=== PATIENT | female | born 1945 | race Caucasian/White ===

== ENCOUNTER 2016-07-04 21:21 | Emergency (ER) | payer MEDICARE, OTHER ==
[~2016-07-04] VITALS: Ht 167.6 cm; Wt 77.5 kg
[2016-07-04 21:25] VITALS: BP 202/112; PULSE 77; RESP 18; TEMP 98.5; O2SAT 100
--- NOTE | 2016-07-04 21:41 | PD ---
HPI Chief Complaint: Hypertension Time Seen by Provider: 21:39 Travel History International Travel<30 days: No Contact w/Intl Traveler<30days: No Traveled to known affect area: No History of Present Illness HPI The patient is a 70 year old female who presents to the [facility] emergency department with a history of reportedly feeling anxious and noticing that her blood pressure and pulse went up prior to arrival. The patient reports that her blood pressure has been difficult to control since last year. She reports that she's been under increased stress since last year when her had a stroke. The patient additionally reports that she's had a significant amount of pain recently which also seems to be affecting her blood pressure. The patient reports that 10 days ago she underwent arthroscopy and medial meniscus repair by Dr. Bowman. She reports that she's been taking hydrocodone 10 mg with minimal relief. The patient reports that she normally drinks alcohol to help with her anxiety. She reports that recently she's been nauseated and has not been drinking as much as previously. She normally drinks 2 vodka beverages every other day. She denies having any history of alcohol related withdrawal symptoms. 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 The patient's blood pressure prior to arrival was 230/120. The patient's pulse was at its maximum 108. The patient was brought in by ambulance services. The patient's blood pressure began to slightly improved prior to arrival. The patient was initially anxious, however after discussing some of her history, she began to become more calm which did improve her blood pressure. The patient does report having a headache over her for head. She denies having any neck pain. She denies having any chest pain, chest pressure, or shortness of breath. She denies having any numbness or tingling to her extremities. She denies having any weakness. The patient reports that yesterday after eating popcorn with butter she did have diarrhea 2. She denies having any other diarrhea. She denies having any vomiting. She has been regularly taking her Coreg and losartan. Her primary care physician is Dr. Shireen Rendon. I review of systems, the patient denies any recent fevers, cough, congestion, abdominal pain, urinary symptoms, or other neurologic symptoms. [facility] Past Medical History Narrative Medical The patient's past medical history is significant for hypertension, meniscus tear of the right knee status post arthroscopic repair 10 days ago, history of anxiety disorder, acid reflux. Anxiety: Yes GERD: Yes Hypertension: Yes Tetanus Vaccination: < 5 Years Influenza Vaccination: Yes Dilation and Curettage (D&C): Yes Past Surgical History Narrative Surgical The patient's past surgical history is significant for a dilation and curettage , multiple ear surgeries, arthroscopy of the right knee 10 days ago, tonsillectomy, spleen surgery Abdominal Surgery: Yes (SPLEEN REPAIR) Ear Surgery: Yes (TB IN EAR, MULTIPLE EAR Sx) Tonsillectomy: Yes Social History Alcohol Use: Yes (reportedly 2 vodka drinks every other day) Tobacco Use: No Substance Use: No Allergies-Medications (Allergen,Severity, Reaction): Coded Allergies: Penicillin (Verified Allergy, Unknown, RASH, 07/04/16) Reported Meds & Prescriptions Reported Meds & Active Scripts Active Xanax (Alprazolam) 0.25 Mg Tab 0.25 Mg PO Q8H PRN Reported Prilosec (Omeprazole Magnesium) 20 Mg Tab 20 Mg PO BID Losartan (Losartan Potassium) 100 Mg Tab 100 Mg PO DAILY Coreg (Carvedilol) 25 Mg Tab 25 Mg PO BID Synthroid (Levothyroxine Sodium) 50 Mcg Tab 50 Mcg PO DAILY Effexor XR 24 HR (Venlafaxine HCl) 150 Mg Cap 150 Mg PO DAILY Review of Systems Except as stated in HPI: all other systems reviewed are Neg General / Constitutional: No: Fever Eyes: No: Visual changes HENT: No: Headaches Cardiovascular: No: Chest Pain or Discomfort Respiratory: No: Shortness of Breath Gastrointestinal: Positive: Nausea, Diarrhea (yesterday 2), Changes in Bowel Habits, No: Vomiting, Abdominal Pain, Hematemesis, Hematochezia, Constipation, Indigestion, Loss of Appetite Genitourinary: No: Dysuria Musculoskeletal: Positive: Myalgias, Arthralgias, Edema, Pain Skin: No Rash Neurologic: Positive: Headache, No: Weakness, Focal Abnormalities, Change in Mentation, Slurred Speech, Sensory Disturbance Psychiatric: Positive: Anxiety, Mood Disorder, No: Depression Endocrine: No: Polydipsia Hematologic/Lymphatic: No: Easy Bruising Physical Exam Narrative General: The patient is a well-developed well-nourished female in no acute distress. Head and Neck exam: Head is normocephalic atraumatic. Eyes: EOMI, pupils are equal round and reactive to light. Nose: Midline septum with pink mucous membranes Mouth: Dentition unremarkable. Moist mucus membranes. Posterior oropharynx is not erythematous. No tonsillar hypertrophy. Uvula midline. Airway patent. Neck: No palpable lymphadenopathy. No nuchal rigidity. No thyromegaly. Cardiovascular: Regular rate and rhythm without murmurs, gallops, or rubs. No pulse deficit to the extremities. Lungs: Clear to auscultation bilaterally. No wheezes, rhonchi, or rales. Abdomen: Soft, without tenderness to palpation in all 4 quadrants of the abdomen. No guarding, rebound, or rigidity. Normal bowel sounds are audible. No tenderness on palpation of McBurney's point. Negative Norman sign. Extremities: No clubbing, cyanosis, or edema. 2+ pulses in all 4 extremities. On examination of the area of interest, the right leg the patient is noted to have bruising extending up the thigh nearly to the groin on the right side, older appearing ecchymosis is noted. The patient has 2 Band-[address] one on the medial aspect of the knee, the other on the lateral aspect of the knee. The Band-Aids were removed. The patient refused to have Steri-Strips removed. She was told these should not be removed by her orthopedic physician. There is no drainage noted. No significant erythema or edema noted. No crepitus. No ballotable patella. The patient reports having some tenderness on palpation along the medial anterior thigh with mild edema reported. No calf tenderness on palpation bilaterally. Negative Homans sign. Back: No costovertebral angle tenderness to palpation. Neurologic Exam: Grossly nonfocal. Skin Exam: No rash noted. Intact skin that is warm and dry. Data Data Last Documented VS Vital Signs Date Time Temp Pulse Resp B/P Pulse Ox O2 Delivery O2 Flow Rate FiO2 07/04/16 22:30 68 16 152/83 98 Room Air 07/04/16 21:25 98.5 Orders Us Leg Venous Doppler (07/04/16 21:38) Electrocardiogram (07/04/16 21:39) Complete Blood Count With Diff (07/04/16 21:39) Basic Metabolic Panel (Bmp) (07/04/16 21:39) C-Reactive Protein (Crp) (07/04/16 21:39) Ct Brain W/O Iv Contrast(Rout) (07/04/16 21:39) Iv Access Insert/Monitor (07/04/16 21:39) Ecg Monitoring (07/04/16 21:39) Oximetry (07/04/16 21:39) Alprazolam (Xanax) (07/04/16 21:45) Labs Laboratory Tests Test 07/04/16 21:45 White Blood Count 8.8 TH/MM3 Red Blood Count 3.79 MIL/MM3 Hemoglobin 11.7 GM/DL Hematocrit 34.4 % Mean Corpuscular Volume 90.8 FL Mean Corpuscular Hemoglobin 30.9 PG Mean Corpuscular Hemoglobin 34.1 % Concent Red Cell Distribution Width 14.5 % Platelet Count 247 TH/MM3 Mean Platelet Volume 9.1 FL Neutrophils (%) (Auto) 64.7 % Lymphocytes (%) (Auto) 22.2 % Monocytes (%) (Auto) 11.2 % Eosinophils (%) (Auto) 1.0 % Basophils (%) (Auto) 0.9 % Neutrophils # (Auto) 5.7 TH/MM3 Lymphocytes # (Auto) 1.9 TH/MM3 Monocytes # (Auto) 1.0 TH/MM3 Eosinophils # (Auto) 0.1 TH/MM3 Basophils # (Auto) 0.1 TH/MM3 CBC Comment DIFF FINAL Differential Comment Sodium Level 140 MEQ/L Potassium Level 3.5 MEQ/L Chloride Level 105 MEQ/L Carbon Dioxide Level 26.3 MEQ/L Anion Gap 9 MEQ/L Blood Urea Nitrogen 15 MG/DL Creatinine 0.76 MG/DL Estimat Glomerular Filtration 76 ML/MIN Rate Random Glucose 116 MG/DL Calcium Level 9.5 MG/DL C-Reactive Protein LESS THAN 0.29 MG/DL MDM Medical Decision Making Medical Screen Exam Complete: Yes Emergency Medical Condition: Yes Medical Record Reviewed: Yes Interpretation(s) Last Impressions Head CT 07/04/162138 Signed Impressions: Service Date/Time: Monday, July 04, 2016 21:54 - CONCLUSION: No acute disease. Jose Bullock MD Lower Extremity Ultrasound 07/04/162137 Signed Impressions: Service Date/Time: Monday, July 04, 2016 21:59 - CONCLUSION: No evidence of deep venous thrombosis within the right lower extremity. Jose Bullock MD Differential Diagnosis Poorly controlled hypertension related to anxiety, versus pain. Right lower extremity ecchymosis and swelling status post arthroscopy: Differential diagnosis for this includes DVT, versus normal postoperative pain, versus infection Narrative Course During the course of the patients emergency department visit, the patients history, examination, and differential diagnosis were reviewed with the patient. The patient had IV access obtained and blood work sent for analysis. The patient was placed on a camp program director with oximetry and blood pressure monitoring. An EKG was done on arrival. The patient's EKG shows a sinus rhythm heart rate of 75, no acute ST segment elevation or depression, T waves are inverted in V1. The patient reported feeling anxious and is asking for anxiety medication. She denies being on any anxiety medications at home. The patient's initial blood pressure is noted to be 202/112. We will continue to monitor this. A CT scan of the brain was ordered. Ultrasound of the right lower extremity was ordered to rule out DVT. The patient was initially provided Xanax 0.5 mg by mouth 1. The patient's blood pressure on repeated evaluation began to slowly improve down to a systolic in the 150s. The patients laboratory studies were reviewed and remarkable for a white count 8.8, hemoglobin 11.7, platelets 247 with 11.2 monocytes, BMP is remarkable for glucose of 116, C-reactive protein less than 0.29 decrease the likelihood of infection postoperatively. Radiology studies were reviewed and remarkable for a CT scan of the brain shows no acute abnormality. An ultrasound of the right lower extremity reveals no evidence of DVT. The patient will be discharged home with a prescription for Xanax. The patient was instructed regarding the importance of close follow-up with her primary care physician for reexamination and repeat evaluation of her blood pressure this week. The patient is resting comfortably and feels better, is alert and in no distress. The patients results and examination findings were discussed with the patient. The repeat examination is unremarkable and benign. The history, exam, diagnostic testing, and current condition do not suggest any significant pathology to warrant further testing, continued ED treatment, admission, or surgical evaluation at this point. The vital signs have been stable. The patient does not have uncontrollable pain, intractable vomiting, or other significant symptoms. The patient's condition is stable and appropriate for discharge. The patient will pursue further outpatient evaluation with a primary care physician or other designated or consulting physician as indicated in the discharge instructions. The patient expressed understanding and was agreeable with this plan. Diagnosis Primary Impression: Hypertension Qualified Code: I10 - Essential hypertension Additional Impressions: Postoperative pain of right knee Anxiety disorder Qualified Code: F41.9 - Anxiety disorder, unspecified type Referrals: Orthopedist 2 days Primary Care Physician 1 day Patient Instructions: General Instructions, Hypertension (ED), Leg Pain (ED) Additional Instructions: Follow-up with her doctor in the morning to discuss options for treatment of hypertension. Med/Other Pt SpecificInfo: Prescription(s) given Scripts Alprazolam (Xanax)0.25 Mg Tab0.25 Mg PO Q8H PRN (ANXIETY) #6 TAB Ref 0 Prov:Sarah Jain MD 07/04/16 Disposition: 01 DISCHARGE HOME Condition: Stable Sarah Jain MD July 04, 2016 21:41
[2016-07-04] MEDS ORDERED: LOSA100T PO (21:42)
[2016-07-04] MEDS ORDERED: LEVO.05 PO (21:42)
[2016-07-04] MEDS ORDERED: PRIL20TA2 PO (21:42)
[2016-07-04] MEDS ORDERED: EFFE150C PO (21:42)
[2016-07-04] MEDS ORDERED: CORE25TA PO (21:42)
[2016-07-04] MEDS ORDERED: ALPRAZolam 0.5 MG TAB PO ONE (21:45)
[2016-07-04 22:00] LABS: AUTOMATED NEUTROPHIL # 5.7 TH/MM3 (1.8-7.7); BASOPHIL # 0.1 TH/MM3 (0-0.2); BASOPHIL % 0.9 % (0.0-2.0); EOSINOPHIL # 0.1 TH/MM3 (0-0.4); HEMATOCRIT 34.4 % (35.0-46.0); HEMO FLAGS DIFF FINAL; LYMPH % 22.2 % (9.0-44.0); LYMPHOCYTE # 1.9 TH/MM3 (1.0-4.8); MEAN CELL VOLUME 90.8 FL (80.0-100.0); MEAN CORPUSCULAR HEMOGLOBIN 30.9 PG (27.0-34.0); MEAN CORPUSCULAR HGB CONC 34.1 % (32.0-36.0); MONO % 11.2 % (0.0-8.0); NEUT % 64.7 % (16.0-70.0); PLATELET COUNT 247 TH/MM3 (150-450); RED BLOOD COUNT 3.79 MIL/MM3 (4.00-5.30); RED CELL DISTRIBUTION WIDTH 14.5 % (11.6-17.2); WHITE BLOOD COUNT 8.8 TH/MM3 (4.0-11.0)
--- NOTE | 2016-07-04 22:04 | RADRPT ---
EXAM DATE/TIME: 07/04/2016 21:54 [facility] COMPARISON: No previous studies available for comparison. INDICATIONS : Cephalgia; hypertensive. RADIATION DOSE: 34.21 CTDIvol (mGy) MEDICAL HISTORY : Hypertension. Gastroesophageal reflux disease. SURGICAL HISTORY : Tonsillectomy. Splenic repair; recent right knee surgery ENCOUNTER: Initial ACUITY: 1 day PAIN SCALE: 5/10 LOCATION: cranial TECHNIQUE: Multiple contiguous axial images were obtained of the head. Using automated exposure control and adj ustment of the mA and/or kV according to patient size, radiation dose was kept as low as reasonably a chievable to obtain optimal diagnostic quality images. FINDINGS: CEREBRUM: The ventricles are normal for age. No evidence of midline shift, mass lesion, hemorrhage or acute in farction. No extra-axial fluid collections are seen. POSTERIOR FOSSA: The cerebellum and brainstem are intact. The 4th ventricle is midline. The cerebellopontine angle i s unremarkable. EXTRACRANIAL: The visualized portion of the orbits is intact. SKULL: The calvaria is intact. No evidence of skull fracture. CONCLUSION: No acute disease. Jose Bullock MD on July 04, 2016 at 22:01 Board Certified Radiologist. This report was verified electronically.
[2016-07-04 22:20] LABS: ANION GAP 9 MEQ/L (5-15); BICARBONATE 26.3 MEQ/L (21.0-32.0); BLOOD UREA NITROGEN 15 MG/DL (7-18); CHLORIDE 105 MEQ/L (98-107); GLOMERULAR FILTRATION RATE 76 ML/MIN (>89); POTASSIUM 3.5 MEQ/L (3.5-5.1); SODIUM (NA) 140 MEQ/L (136-145)
[2016-07-04 22:30] VITALS: BP 152/83; PULSE 68; RESP 16; O2SAT 98
--- NOTE | 2016-07-04 22:34 | RADRPT ---
EXAM DATE/TIME: 07/04/2016 21:59 [facility] COMPARISON: No previous studies available for comparison. INDICATIONS : MEDICAL HISTORY : Hypertension. Gastroesophageal reflux disease. Anxiety. SURGICAL HISTORY : Tonsillectomy. Multiple ear surgery. Spleen repair. Dilation and curettage. Right knee surgery. ENCOUNTER: Initial ACUITY: 1 day PAIN SCORE: 7/10 LOCATION: Right leg. TECHNIQUE: Venous ultrasound of the leg was performed from the inguinal ligament to the proximal calf. Real-jocelin e, color Doppler and spectral tracing, compression and augmentation techniques were used. FINDINGS: There is normal compressibility of the deep venous system from the inguinal region to the proximal ca lf. No echogenic clot is seen in the lumen of the common femoral, femoral, popliteal, and posterior tibial veins. There is a normal response of the venous system to proximal and distal augmentation an d respiration. CONCLUSION: No evidence of deep venous thrombosis within the right lower extremity. Jose Bullokc MD on July 04, 2016 at 22:32 Board Certified Radiologist. This report was verified electronically.
[2016-07-04] MEDS ORDERED: ALPR.25 PO (23:15)
--- NOTE | 2016-07-05 08:21 | EKG ---
Date Performed: 07/04/2016 Time Performed: 21:34:35 PTAGE: 70 years EKG: Sinus rhythm NORMAL ECG NO PREVIOUS TRACING DOCTOR: Sanket Dempsey Interpretating Date/Time 07/05/2016 08:21:04
== END 2016-07-04 23:38 | disposition home or self-care (01) ==
LOC: NEPE 21:21
DX: I10 Essential (primary) hypertension (principal); M25.561 Pain in right knee; G89.18 Other acute postprocedural pain; F41.9 Anxiety disorder, unspecified; R51 Headache; K21.9 Gastro-esophageal reflux disease without esophagitis
CPT/HCPCS: 70450; 80048; 85025; 86140; 93005; 93971